=== PATIENT | female | born 1955 | race Caucasian/White ===

== ENCOUNTER → 2019-01-08 10:21 | Outpatient (CLI) | payer OTHER, SELFPAY ==
--- NOTE | 2019-01-08 | DI.MG.S_ITS ---
BILATERAL DIGITAL SCREENING MAMMOGRAM 3D/2D WITH CAD: 01/08/2019 CLINICAL: Routine screening. Comparison is made to exam dated: 12/29/2014 mammogram - [facility]. The tissue of both breasts is heterogeneously dense. This may lower the sensitivity of mammography. Current study was also evaluated with a Computer Aided Detection (CAD) system. No significant masses, calcifications, or other findings are seen in either breast. There has been no significant interval change. IMPRESSION: NEGATIVE There is no mammographic evidence of malignancy. A 1 year screening mammogram is recommended. This exam was interpreted at Station ID: [id number]. NOTE: For mammograms, a report in lay terms will be sent to the patient. Approximately 15% of breast malignancies will not be visualized mammographically. In the management of a palpable breast mass, a negative mammogram must not discourage biopsy of a clinically suspicious lesion. Electronically Signed By: Fallon de luna/nolvia:01/09/2019 14:24:37 letter sent: Normal Exam ACR BI-RADS Category 1: Negative 3341F
== END ==
PROVIDERS: PCP Internal Medicine; Visit Provider Internal Medicine
DX: Z12.31 Encounter for screening mammogram for malignant neoplasm of breast (principal)
CPT/HCPCS: 77063; 77067

== ENCOUNTER → 2020-04-18 17:14 | Outpatient (CLI) | payer OTHER, SELFPAY ==
--- NOTE | 2020-04-18 | DI.MG.S_ITS ---
BILATERAL DIGITAL SCREENING MAMMOGRAM 3D/2D WITH CAD: 04/18/2020 CLINICAL: Routine screening. Comparison is made to exams dated: 01/08/2019 mammogram - [facility] and 12/29/2014 mammogram - [facility]. The tissue of both breasts is heterogeneously dense. This may lower the sensitivity of mammography. Current study was also evaluated with a Computer Aided Detection (CAD) system. There is a new irregular high density asymmetry in the left breast at 11 o'clock middle depth. No other significant masses, calcifications, or other findings are seen in either breast. IMPRESSION: INCOMPLETE: NEEDS ADDITIONAL IMAGING EVALUATION The new irregular high density asymmetry in the left breast is indeterminate. A diagnostic mammogram and ultrasound is recommended. This exam was interpreted at Station ID: [id number]. NOTE: For mammograms, a report in lay terms will be sent to the patient. Approximately 15% of breast malignancies will not be visualized mammographically. In the management of a palpable breast mass, a negative mammogram must not discourage biopsy of a clinically suspicious lesion. Electronically Signed By: Fallon de luna/nolvia:04/20/2020 09:10:36 letter sent: Additional Imaging Needed ACR BI-RADS Category 0: Incomplete 3340F
--- NOTE | 2020-04-18 | DI.US.S_ITS ---
PROCEDURE: US RENAL COMPLETE INDICATIONS: Chronic kidney disease; Routine screening TECHNIQUE: Real-time scanning was performed of the kidneys and bladder, with image documentation. COMPARISON: None. FINDINGS: Kidneys: Kidneys are normal in size. Right kidney measures 11.8 cm long; left kidney measures 11.6 cm long. Right renal cortical thickness is 1.1 cm; left renal cortical thickness is 1.2 cm. Renal cortical echotexture is normal. No hydronephrosis or nephrolithiasis. No suspicious solid mass lesions. There is a cyst on the right, simple, mid kidney measuring up to 1.4 x 0.9 x 1.3 cm. There is no hydronephrosis or nephrolithiasis noted. Minimal prominence of the renal hilum is noted on the left but in the range of normal variation. Bladder: Pre-void bladder volume is 198.5 mL. Post-void residual is 5.0 mL. Pre-void images demonstrate no intraluminal masses or stones. On pre-void images, bilateral ureteral jets are noted with color Doppler interrogation. (Of note, ureteral jets may not be detectable in up to 25% of cases due to insufficient differences in specific gravity between ureteral and bladder urine). Miscellaneous: No free pelvic fluid. IMPRESSION: Mild renal cortical thinning bilaterally, normal craniocaudad length of each kidney. No hydronephrosis or nephrolithiasis found. Normal bladder function. Dictated by: Jc Villavicencio M.D. on 04/19/2020 at 11:56 Approved by: Jc Villavicencio M.D. on 04/19/2020 at 11:58
== END ==
PROVIDERS: PCP Internal Medicine; Referring Provider Internal Medicine; Visit Provider Internal Medicine
DX: Z12.31 Encounter for screening mammogram for malignant neoplasm of breast (principal); N18.9 Chronic kidney disease, unspecified
CPT/HCPCS: 76770; 77063; 77067

== ENCOUNTER → 2020-05-12 15:01 | Outpatient (CLI) | payer OTHER, SELFPAY ==
--- NOTE | 2020-05-12 | DI.MG.S_ITS ---
UNILATERAL LEFT DIGITAL DIAGNOSTIC MAMMOGRAM 3D/2D WITH ADDITIONAL VIEWS: 05/12/2020 CLINICAL: Additional evaluation requested from prior study. Comparison is made to exams dated: 04/18/2020 mammogram, 01/08/2019 mammogram - [facility], and 12/29/2014 mammogram - [facility]. The tissue of left breast is heterogeneously dense. This may lower the sensitivity of mammography. There is an 8 mm irregular focal asymmetry in the left breast at 10 o'clock middle depth. This is seen in additional views. No other significant masses or calcifications are seen in the breast. IMPRESSION: INCOMPLETE: NEEDS ADDITIONAL IMAGING EVALUATION The 8 mm irregular focal asymmetry in the left breast is indeterminate. An ultrasound is recommended. This exam was interpreted at Station ID: [id number]. NOTE: For mammograms, a report in lay terms will be sent to the patient. Approximately 15% of breast malignancies will not be visualized mammographically. In the management of a palpable breast mass, a negative mammogram must not discourage biopsy of a clinically suspicious lesion. SUMMARY: Targeted ultrasound is recommended for further evaluation and will be scheduled immediately following this exam. Electronically Signed By: Lucho gruloln/nolvia:05/12/2020 16:57:33 ACR BI-RADS Category 0: Incomplete 3340F
--- NOTE | 2020-05-12 | DI.US.S_ITS ---
LIMITED ULTRASOUND OF LEFT BREAST AND AXILLA: 05/12/2020 CLINICAL: Patient returns today to evaluate a focal asymmetry in the left breast. Comparison is made to exams dated: 05/12/2020 mammogram, 04/18/2020 mammogram, 01/08/2019 mammogram, 01/08/2019 mammogram - [facility], and 12/29/2014 mammogram - [facility]. Color flow and real-time ultrasound of the left breast 10 o'clock, and axilla regions were performed. Peña scale images of the real-time examination were reviewed. There is a 0.7 cm x 0.8 cm x 0.4 cm oval mass with a circumscribed margin in the left breast at 10 o'clock middle depth 7 cm from the nipple. This oval mass is hypoechoic with posterior acoustic enhancement. This correlates with mammography findings. No significant abnormalities were seen sonographically in the left axilla. IMPRESSION: SUSPICIOUS OF MALIGNANCY The 0.7 cm x 0.8 cm x 0.4 cm oval mass in the left breast is at a low suspicion for malignancy. An ultrasound guided biopsy is recommended. The findings and recommendations were discussed with the patient by the onsite radiologist, Dr. Hennessy, at the time of the exam. This exam was interpreted at Station ID: [id number]. Electronically Signed By: Lucho grullon/nolvia:05/12/2020 17:00:26 letter sent: Biopsy Required Ultrasound BI-RADS: 4a Low suspicion for malignancy
== END ==
PROVIDERS: PCP Internal Medicine; Referring Provider Internal Medicine; Visit Provider Internal Medicine
DX: R92.8 Other abnormal and inconclusive findings on diagnostic imaging of breast (principal)
CPT/HCPCS: 76642; 77065; G0279

== ENCOUNTER → 2020-05-26 11:08 | Outpatient (CLI) | payer OTHER, SELFPAY ==
--- NOTE | 2020-05-26 | DI.US.S_ITS ---
ULTRASOUND GUIDED BIOPSY LEFT BREAST USING VACUUM DEVICE WITH MARKING DEVICE INSERTED AND POST MAMMOGRAPHIC AND ULTRASOUND IMAGIN05/26/2020 CLINICAL: Left breast mass. PATIENT CONSENT: Risks (minor bleeding, infection, vasovagal reaction and repeat procedure), benefits and alternatives were explained to the patient and written informed consent was obtained. Correlation is made to exams dated: 05/26/2020 mammogram, 05/12/2020 ultrasound, 05/12/2020 mammogram, and 04/18/2020 mammogram - [facility]. An ultrasound guided biopsy using real-time ultrasound was performed for the concerning 0.2 cm x 0.3 cm x 0.2 cm circumscribed oval solid mass located in the left breast at 10 o'clock middle depth. This was described on the previous mammography and ultrasound reports. The skin was prepped in the usual manner. Local anesthetic was administered to the access site. A skin myriam was made in the breast. The abnormality was approached from the lateral aspect. A 13 gauge biopsy needle was placed adjacent to the abnormality under ultrasound guidance. Once the needle was documented to be in the correct location, five specimens were obtained using the Mammotome biopsy system. The patient received additional local anesthetic during the procedure. A Vision Marker clip was inserted into the biopsy cavity. A skin closure strip and a sterile dressing were applied to the access site. Post procedure mammographic and ultrasound imaging demonstrates the location device at the targeted area and partial removal of the abnormality. The specimens were sent to the laboratory for pathological analysis. IMPRESSION: ULTRASOUND GUIDED BIOPSY BENIGN Ultrasound guided biopsy of the 0.2 cm x 0.3 cm x 0.2 cm solid mass in the left breast at 10 o'clock middle depth was successful. Pathology indicates benign breast tissue including dense fibrous stroma, some focal fibroadenomatoid changes and benign changes of collageneous spherulosis. Some disorganized adipose tissue within the dense stroma suggestive of hamartoma. Pathology results are concordant with imaging findings. Recommend routine screening mammogram in one year. This exam was interpreted at Station ID: [id number]. Jc Limon M.D. [facility],aty/:05/30/2020 20:00:50
--- NOTE | 2020-05-26 | DI.MG.S_ITS ---
UNILATERAL LEFT DIGITAL DIAGNOSTIC MAMMOGRAM POST-NEEDLE BIOPSY POST-EXCISIONAL BIOPSY: 05/26/2020 CLINICAL: Left breast mass. Comparison is made to exams dated: 05/12/2020 mammogram, 04/18/2020 mammogram, and 01/08/2019 mammogram - [facility]. The tissue of left breast is heterogeneously dense. This may lower the sensitivity of mammography. There is a marker clip in the appropriate position in the left breast at 11 o'clock middle depth. This marker clip placement is at the biopsy site. This correlates with ultrasound findings. IMPRESSION: POST PROCEDURE MAMMOGRAM FOR MARKER PLACEMENT There was a successful marker clip placement in the left breast middle depth, placed at the margin of the biopsy site. This exam was interpreted at Station ID: [id number]. NOTE: For mammograms, a report in lay terms will be sent to the patient. Approximately 15% of breast malignancies will not be visualized mammographically. In the management of a palpable breast mass, a negative mammogram must not discourage biopsy of a clinically suspicious lesion. Electronically Signed By: Jc Villavicencio M.D. sdh/:05/26/2020 16:33:31 ACR BI-RADS Category Post-procedure mammogram for marker placement
--- NOTE | 2020-05-26 | PATH_ITS ---
[facility] Accession Number: [id number] . 01 Material submitted: . breast - LEFT BREAST MASS . 02 Diagnosis: Left Breast, Mass, Core Needle Biopsies: Benign breast tissue. Negative for atypical hyperplasia, in situ, or invasive carcinoma. Please see comment. [facility] 05/27/2020 1611 Local . 02 Comment: Core needle fragments of breast tissue contain dense fibrous breast stroma with scattered benign lobules, some with focal fibroadenomatoid changes and benign changes of collageneous spherulosis. There is mildly disorganized adipose tissue within the dense stroma suggestive of, but not diagnostic for hamartoma. As part of routine production quality manager, Dr. Johnson also reviewed this case and agrees with the interpretation. . . . 02 Electronically signed: . Yenni Azar MD, Pathologist NPI- [id number] . 01 Gross description: . Received one formalin-filled container, labeled with the patient's name and labeled L breast mass. The specimen is received with a plastic filter in container, sample loose in container and consists of multiple light yellow-musa portions of tissue which range in size from 0.9 x 0.2 x 0.2 cm to 2.0 x 0.3 x 0.3 cm. All fragments are totally submitted in one cassette. Possible collection date and time per requisition: 05/26/20 at 12:33. Total fixation time: Approximately 13 hours. ([id number]) /FRDeonna 05/27/2020222 Local . 02 Pathologist provided ICD-10: N63.20 . 02 CPT . 193843 Performed at: [address], [place], [place] [id number] MD Macho Guo MD Phone: [phone] Performed at: 02 [facility] [address] [place] [id number] MD Yenni Azar MD Phone: [phone]
== END ==
PROVIDERS: PCP Internal Medicine; Referring Provider Internal Medicine; Visit Provider Internal Medicine
DX: N60.22 Fibroadenosis of left breast (principal)
CPT/HCPCS: 19083; 77065

== ENCOUNTER → 2020-06-28 11:31 | Outpatient (CLI) | payer OTHER, SELFPAY ==
--- NOTE | 2020-06-28 | DI.CT.S_ITS ---
PROCEDURE: CT SOFT TISSUE NECK WO/W CON INDICATIONS: Primary hyperparathyroidism TECHNIQUE: Before and after the administration of intravenous contrast, 2.0 mm axial sections acquired through the neck and down to the eugene. Additional 2.0 mm coronal and sagittal reformats were generated of the contrast enhanced images. For radiation dose reduction, the following was used: automated exposure control. COMPARISON: None. FINDINGS: Image quality: Excellent. Parathyroid: On the right side, there is a focus of soft tissue seen at demonstrates delayed washout, as on series 6, image 46 that measures up to 6 mm. No additional potential parathyroid nodules can be seen. Thyroid: Prior right hemithyroidectomy. The left thyroid lobe enhances heterogeneously, yet without focally suspicious lesions. Just inferior to the left thyroid, there is a focal nodule seen, as on series 2, image 41 that measures up to 6 mm. This demonstrates precontrast and postcontrast density similar to the adjacent normal thyroid. Lymph nodes: No enlarged lymph nodes seen throughout the neck. Vessels: Visualized vasculature appears patent. Neck spaces: The oropharynx, nasopharynx, and pharynx demonstrate no mucosal lesions. The vocal cords, false vocal cords, pyriform sinuses, epiglottis, vallecula, and tongue base all appear normal. Extramucosal spaces appear unremarkable. Glands: The parotid and submandibular glands appear normal. Miscellaneous: Visualized lungs appear clear. Superficial soft tissues appear normal. Bones: No suspicious bony lesions. Visualized sinuses and mastoids appear unremarkable. Moderate degenerative changes are seen. IMPRESSION: There is a potential parathyroid adenoma seen on the right that measures up to 6 mm. However, differential diagnosis would also include a lymph node. Please correlate with known patient history and biochemical data. Status post right hemithyroidectomy. Dictated by: Jamison Hurst M.D. on 06/28/2020 at 15:17 Approved by: Jamison Hurst M.D. on 06/28/2020 at 15:25
== END ==
PROVIDERS: PCP Internal Medicine; Referring Provider Specialist/Technologist, Other Surgical Technologist; Visit Provider Specialist/Technologist, Other Surgical Technologist
DX: E21.0 Primary hyperparathyroidism (principal)
CPT/HCPCS: 70492; Q9967

== ENCOUNTER → 2020-09-16 08:37 | Outpatient (CLI) | payer MEDICARE, SELFPAY ==
[2020-09-16] MEDS: COVID-19 VACC #1, MRNA(MOD) 100 MCG/0.5 ML VIAL IM (08:47)
== END ==
PROVIDERS: PCP Internal Medicine; Visit Provider Internal Medicine
DX: Z23 Encounter for immunization (principal)
CPT/HCPCS: 0011A; 91301

== ENCOUNTER → 2020-10-05 14:03 | Outpatient (ROUT) | payer MEDICARE, SELFPAY ==
[2020-10-05 17:13] LABS: Alanine Aminotransferase 22 IU/L (<35); Albumin 4.7 g/dL (3.5-5.0); Albumin Globulin Ratio 1.5 (1.0-2.8); Alkaline Phosphatase 69 U/L (38-126); Aspartate Aminotransferase 32 IU/L (14-36); BUN Creatinine Ratio 25.5 (6-22); Bilirubin Total 0.4 mg/dL (0.2-1.3); Blood Urea Nitrogen 28 mg/dL (7-17); Calcium 10.6 mg/dL (8.4-10.2); Carbon Dioxide 26 mmol/L (22-32); Chloride 101 mmol/L (98-107); Cholesterol 238 mg/dL (140-199); Estimated Glomerular Filt Rate 49.8 mL/min (>60); Globulin 3.2 g/dL (1.7-4.1); Glucose 99 mg/dL (80-110); HDL Cholesterol 54 mg/dL (40-60); HEMOLYSIS < 15 (0-50); LDL Cholesterol Calculated 136 mg/dL (<100); Potassium 4.1 mmol/L (3.4-5.1); Sodium 140 mmol/L (137-145); Total Protein 7.9 g/dL (6.3-8.2); Triglycerides 241 mg/dL (35-150)
== END ==
PROVIDERS: PCP Internal Medicine; Visit Provider Internal Medicine
DX: N18.30 Chronic kidney disease, stage 3 unspecified (principal); E78.2 Mixed hyperlipidemia
CPT/HCPCS: 80053; 80061

== ENCOUNTER → 2020-10-14 08:34 | Outpatient (CLI) | payer MEDICARE, SELFPAY ==
[2020-10-14] MEDS: COVID-19 VACC #2, MRNA(MOD) 100 MCG/0.5 ML VIAL IM (08:40)
== END ==
PROVIDERS: PCP Internal Medicine; Visit Provider Internal Medicine
DX: Z23 Encounter for immunization (principal)
CPT/HCPCS: 0012A; 91301

== ENCOUNTER → 2021-01-11 11:49 | Outpatient (CLI) | payer MEDICARE, SELFPAY | PROVIDERS: PCP Internal Medicine; Referring Provider Internal Medicine; Visit Provider Internal Medicine | DX: Z78.0 Asymptomatic menopausal state (principal); M85.88 Other specified disorders of bone density and structure, other site | CPT/HCPCS: 77080 ==

== ENCOUNTER → 2021-03-30 12:08 | Outpatient (CLI) | payer MEDICARE, SELFPAY ==
--- NOTE | 2021-03-30 12:11 | DI.RAD.S_ITS ---
PROCEDURE: XR ANKLE RT MIN 3V INDICATIONS: Ankle Injury TECHNIQUE: 3 views of the ankle were acquired. COMPARISON: None. FINDINGS: Bones: Minimally displaced lateral malleolus fracture. Soft tissues: No tibiotalar joint effusion. Achilles tendon appears normal. IMPRESSION: Lateral malleolar fracture. Dictated by: Nini Hennessy MD, PhD on 03/30/2021 at 12:43 Approved by: Nini Hennessy MD, PhD on 03/30/2021 at 12:45
== END ==
PROVIDERS: PCP Internal Medicine; Referring Provider Nurse Practitioner; Visit Provider Nurse Practitioner
DX: S82.61XA Displaced fracture of lateral malleolus of right fibula, initial encounter for closed fracture (principal)
CPT/HCPCS: 73610

== ENCOUNTER → 2022-07-12 14:04 | Outpatient (CLI) | payer OTHER, SELFPAY ==
--- NOTE | 2022-07-12 14:06 | DI.MG.S_ITS ---
BILATERAL DIGITAL SCREENING MAMMOGRAM 3D/2D WITH CAD: 07/12/2022 CLINICAL: Routine screening. Comparison is made to exams dated: 04/18/2020 mammogram, 01/08/2019 mammogram, 01/08/2019 mammogram, 05/26/2020 ultrasound biopsy, 05/26/2020 mammogram, and 05/12/2020 ultrasound [facility]. Both breasts are heterogeneously dense, which may obscure small masses (category c / 51-75% glandular tissue). Current study was also evaluated with a Computer Aided Detection (CAD) system. No significant masses, calcifications, or other findings are seen in either breast. There has been no significant interval change. IMPRESSION: NEGATIVE There is no mammographic evidence of malignancy. A 1 year screening mammogram is recommended. Based on the Tyrer Cuzick model (a risk assessment model) the patient's lifetime risk is 8.2% and her 10 year risk is 4.2%. According to the ACR, ACS, and NCCN guidelines, an annual breast MRI exam along with mammogram is recommended if the patient's lifetime risk is 20% or greater. This exam was interpreted at Station ID: [id number]. NOTE: For mammograms, a report in lay terms will be sent to the patient. Approximately 15% of breast malignancies will not be visualized mammographically. In the management of a palpable breast mass, a negative mammogram must not discourage biopsy of a clinically suspicious lesion. Electronically Signed By: Hebert Ramos M.D., jr/nolvia:07/12/2022 14:47:50 letter sent: Normal Exam ACR BI-RADS Category 1: Negative 3341F
== END ==
PROVIDERS: Referring Provider Internal Medicine; Visit Provider Internal Medicine
DX: Z12.31 Encounter for screening mammogram for malignant neoplasm of breast (principal)
CPT/HCPCS: 77063; 77067

== ENCOUNTER 2022-12-10 12:22 | Day surgery (SDC) | payer OTHER, SELFPAY ==
--- NOTE | 2022-12-10 | PATH_ITS ---
[facility] Accession Number: [id number] No. of containers..02 Tissue . 01 Material submitted: . PART A: colon - RIGHT COLON POLYP X2 PART B: colon - TRANSVERSE COLON POLYP X2 . 01 Diagnosis: A. Right Colon Polyps: Tubular adenoma x2. . B. Transverse Colon Polyps: Tubular adenoma x2. [facility] 12/14/2022 1605 Local . 01 Electronically signed: . Jonas Wilkins MD, PhD, Pathologist NPI- [id number] . 01 Gross description: . A. Received in formalin, labeled with the patient's name, , and right colon polyp, and consists of two ruvalcaba soft tissue fragments measuring 0.2 cm in greatest dimension. Submitted entirely in cassette A1. B. Received in formalin, labeled with the patient's name, , and transverse colon polyp, and consists of two ruvalcaba soft tissue fragments ranging from 0.5 cm to 0.7 cm in greatest dimension. Submitted entirely in cassette B1. ([id number]) /[facility] 12/13/2022 0221 Local . 01 Pathologist provided ICD-10: D12.6, D12.3 . 01 CPT . 786865, 075268 Specimen Comment: A courtesy copy of this report has been sent to [phone] Performed at: 01 [facility] [address] [place] [address], [place], [place] [id number] MD Macho Guo MD Phone: [phone]
[2022-12-10 12:48] VITALS: BMI 37.8
[2022-12-10 12:59] VITALS: BP 166/90; PULSE 95; RESP 18; TEMP 36.9; O2SAT 93
[2022-12-10] MEDS: LACTATED RINGERS 1,000 ML 42 ML IV (13:01)
--- NOTE | 2022-12-10 13:25 | P.HP_ITS ---
History of Present Illness History of Present Illness Date Patient Seen: 12/10/22 Time Patient Seen: 13:25 Chief complaint: Screening Colonoscopy Narrative: Here for colon cancer screening. [facility] Social History Smoking Status: Former smoker Meds Home Medications and Allergies Home Medications Medication Instructions Recorded Confirmed Type levothyroxine 75 mcg capsule 75 mcg PO DAILY 03/30/21 12/10/22 History allopurinol 300 mg tablet 300 mg PO DAILY 12/10/22 12/10/22 History atorvastatin 20 mg tablet 20 mg PO DAILY 12/10/22 12/10/22 History famotidine 20 mg tablet (Pepcid AC) 20 mg PO DAILY PRN Acid Reflux 12/10/22 12/10/22 History fenofibrate nanocrystallized 145 145 mg PO DAILY 12/10/22 12/10/22 History mg tablet Allergies Allergy/AdvReac Type Severity Reaction Status Date / Time shellfish derived Allergy Intermediate Hives Verified 12/10/22 12:45 Exam Vital Signs (past 8 hours): - 12/10/22 12:59 Temperature 98.5 F Pulse Rate 95 H Respiratory Rate 18 Blood Pressure 166/90 H Pulse Oximetry 93 Oxygen Delivery Method Room Air Oxygen Delivery Method Room Air Const General: cooperative HENMT Head: normal to inspection Eyes General: appearance normal, both eyes and all related structures Neck Neck: normal visual inspection Chest Chest: normal inspection of the chest Resp Effort & Inspection: normal respiratory effort Cardio Rate: regular rate GI Inspection: normal to inspection Skin General: no rashes or lesions noted Neuro General: patient alert and patient awake Extrem General: normal to inspection and no pedal edema Psych Appearance: grossly normal Assessment & Plan Assessment & Plan narrative: 67-year-old female here for colon cancer screening. Colonoscopy is pursued today.
--- NOTE | 2022-12-10 13:26 | PM.PREOP ---
Pre-operative Note Interval Note History & Physical reviewed/Exam performed by Physician: Yes Changes to H&P: No ASA Class (for procedural sedation): II
--- NOTE | 2022-12-10 14:38 | PM.OP.COLON ---
Operative Date/Time/Diagnoses Date of procedure: 12/10/22 Time of procedure: 14:38 Pre-op diagnosis: Colon cancer screening Post-op diagnosis: same Procedure & Clinicians Study performed: Colonoscopy with cold forceps polypectomy hot snare polypectomy Same procedure as scheduled: Yes Indications: Colon cancer screening Surgeon: Torres Gurrola Procedure Notes SCOAP/Timeout: Done Procedure in detail: After the risks and benefits were explained, written and verbal informed consent was obtained. The patient was brought into the procedure room and placed into the left lateral decubitus position. Please see anesthesia notes for sedation details. Digital rectal examination was accomplished. The scope was introduced into the patient and advanced under direct visualization to the cecum as identified by the appendiceal orifice and ileocecal valve. The scope was slowly withdrawn to carefully examine the mucosa for any defects or lesions. Comprehensive imaging was accomplished throughout the rectum including the dentate line. The colon was decompressed, the scope was then removed from the patient who tolerated the procedure well. Pediatric colonoscope Bowel prep adequate Scope withdrawal time: 14 minutes Sedation minutes: 19 Complications: none Impression: There was diverticulosis noted in the left colon. In the transverse there were a couple of sessile polyps removed with hot snare. The larger of the 2 was perhaps 7 mm the smaller of the 2 4 mm. In the right colon there was a diminutive polyp removed from the cecum and then another diminutive polyp removed from the ascending colon. These were submitted together as ?right colon polyps?. No significant additional pathology appreciated throughout. Grade 2 hemorrhoids were noted on direct views. Endoscopic diagnosis 1. Diverticulosis 2. Grade 2 hemorrhoids 3. Colon polyps Post-procedure Plan for aftercare: 1. Await histopathology. 2. If adenomatous features are confirmed, repeat colonoscopy will likely be suggested for 3 years. Disposition: PACU
[2022-12-10 14:44] VITALS: BP 110/61; PULSE 79; RESP 18; TEMP 36.2; O2SAT 93
[2022-12-10 14:47] VITALS: BP 125/72; PULSE 81; PULSE 96; RESP 14; O2SAT 95; O2SAT 96
[2022-12-10 14:52] VITALS: BP 134/73; PULSE 80; RESP 20; O2SAT 94
[2022-12-10 14:57] VITALS: BP 143/83; PULSE 81; RESP 19; O2SAT 96
== END 2022-12-10 15:11 | disposition home or self-care (01) ==
PROVIDERS: PCP Internal Medicine; Referring Provider Internal Medicine Gastroenterology; Visit Provider Internal Medicine Gastroenterology
PROC: 0DJD8ZZ Inspection of Lower Intestinal Tract, Via Natural or Artificial Opening Endoscopic (ICD-10-PCS; CPT 45378; principal; 2022-12-10 13:30)
DX: Z12.11 Encounter for screening for malignant neoplasm of colon (principal); K57.30 Diverticulosis of large intestine without perforation or abscess without bleeding; K64.1 Second degree hemorrhoids; D12.2 Benign neoplasm of ascending colon; D12.3 Benign neoplasm of transverse colon
CPT/HCPCS: 45385; J2704

== ENCOUNTER → 2023-08-23 | Outpatient (CLI) | payer OTHER, SELFPAY ==
--- NOTE | 2023-08-23 14:46 | DI.RAD.S_ITS ---
Bone Density Report Name: JO CHAKRABORTY Age: 67 Sex: Female Ethnicity: White Date of : 1955 Indication: osteopenia; secondary osteoporosis; Referring Provider: RADHA MCKAY Study: Bone densitometry was performed. Exam Date: August 23, 2023 Accession number: [id number] Bone Density: Region BMD T-score Z-score Classification AP Spine(L1-L4) 0.978 -0.6 1.3 Normal Femoral Neck (Left) 0.694 -1.4 0.3 Osteopenia Total Hip (Left) 0.865 -0.6 0.8 Normal Femoral Neck (Right) 0.781 -0.6 1.1 Normal Total Hip (Right) 0.897 -0.4 1.0 Normal Total Hip Mean 0.881 -0.5 0.9 Normal World Health Organization criteria for BMD impression classify patients as: Normal (T-score at or above -1.0), Osteopenia (T-score between -1.0 and -2.5), or Osteoporosis (T-score at or below -2.5). 10-year Fracture Risk(1): Major Osteoporotic Fracture 8.6% Hip Fracture 0.9% Reported Risk Factors: [place] (), Neck BMD=0.694, BMI=36.6, secondary osteoporosis (1) FRAX(R) Version 3.08. Fracture probability calculated for an untreated patient. Fracture probability may be lower if the patient has received treatment. Previous Exams: -- Region Exam Age BMD T-score BMD Change BMD Change Date g/cm2 vs Baseline vs Previous -- AP Spine (L1-L4) 08/23/2023 67 0.978 -0.6 0.051 (5.5%)# 0.051 (5.5%)# 01/11/2021 65 0.927 -1.1 Total Hip(Left) 08/23/2023 67 0.865 -0.6 0.027 (3.2%)# 0.027 (3.2%)# 01/11/2021 65 0.838 -0.8 Total Hip(Right) 08/23/2023 67 0.897 -0.4 0.040 (4.6%)# 0.040 (4.6%)# 01/11/2021 65 0.857 -0.7 -- *Denotes significance at 95% confidence level, LSC for AP Spine = 0.022 g/cm2, LSC for Total Hip = 0.027 g/cm2 # Denotes dissimilar scan types or analysis methods Impression: The patient has low bone mass, based on the Left Femoral Neck T-score. The patient has an estimated ten-year risk of hip fracture of 0.9% and an estimated ten-year risk of major fracture of 8.6%, based on the WHO FRAX algorithm. No significant bone loss was observed. Discussion: BONE DENSITY IS LOW AT ONE OR MORE SKELETAL SITES. This patient's lowest T-score is low at one or more skeletal sites. It meets the World Health Organization's (WHO) criteria for low bone mass (T-score between -1.0 and -2.5). The patient's 10-year risk of fracture as calculated by FRAX is less than the threshold where pharmacological therapy is recommended by the National Osteoporosis Foundation (NOF). However, all treatment decisions require clinical judgment and consideration of individual patient factors, including patient preferences, comorbidities, previous drug use, risk factors not captured in the FRAX model (e.g., frailty, falls, vitamin D deficiency, increased bone turnover, interval significant decline in bone density) and possible under or overestimation of fracture risk by FRAX. The patient should follow a healthful lifestyle (good nutrition with adequate calcium and vitamin D, and appropriate weight-bearing exercise). Follow-Up: Consider repeating this study in 2 to 3 years to reassess this patient's status, or sooner if there is some new clinical indication. Reported by: PATIENCE VALERIO M.D. on 08/23/2023 4:05:00 PM.
== END ==
PROVIDERS: PCP Internal Medicine; Referring Provider Internal Medicine; Visit Provider Internal Medicine
DX: M81.0 Age-related osteoporosis without current pathological fracture (principal); Z78.0 Asymptomatic menopausal state; E20.9 Hypoparathyroidism, unspecified; K63.9 Disease of intestine, unspecified; Z92.23 Personal history of estrogen therapy; Z90.710 Acquired absence of both cervix and uterus
CPT/HCPCS: 77080

== ENCOUNTER → 2023-09-06 14:22 | Outpatient (CLI) | payer OTHER, SELFPAY ==
--- NOTE | 2023-09-06 14:25 | DI.MG.S_ITS ---
BILATERAL DIGITAL SCREENING MAMMOGRAM 3D/2D WITH CAD: 09/06/2023 CLINICAL: Routine screening. Comparison is made to exams dated: 07/12/2022 mammogram, 05/12/2020 mammogram, 04/18/2020 mammogram, 01/08/2019 mammogram, and 01/08/2019 mammogram - [facility]. Both breasts are heterogeneously dense, which may obscure small masses (category c / 51-75% glandular tissue). Current study was also evaluated with a Computer Aided Detection (CAD) system. There are benign calcifications in both breasts. There also are benign post operative findings in both breasts. No significant masses, calcifications, or other findings are seen in either breast. There has been no significant interval change. IMPRESSION: BENIGN There is no mammographic evidence of malignancy. A 1 year screening mammogram is recommended. Based on the Tyrer Cuzick model (a risk assessment model) the patient's lifetime risk is 7.8% and her 10 year risk is 4.2%. According to the ACR, ACS, and NCCN guidelines, an annual breast MRI exam along with mammogram is recommended if the patient's lifetime risk is 20% or greater. This exam was interpreted at Station ID: [id number]. NOTE: For mammograms, a report in lay terms will be sent to the patient. Approximately 15% of breast malignancies will not be visualized mammographically. In the management of a palpable breast mass, a negative mammogram must not discourage biopsy of a clinically suspicious lesion. Electronically Signed By: Alexandria alamo/nolvia:09/06/2023 15:58:59 letter sent: Normal Exam ACR BI-RADS Category 2: Benign Finding(s) 3342F
== END ==
PROVIDERS: PCP Internal Medicine; Referring Provider Internal Medicine; Visit Provider Internal Medicine
DX: Z12.31 Encounter for screening mammogram for malignant neoplasm of breast (principal); R92.333 Mammographic heterogeneous density, bilateral breasts
CPT/HCPCS: 77063; 77067